=== PATIENT | female | born 1935 | race Caucasian/White ===

== ENCOUNTER → 2017-04-07 | Outpatient (CLI) | payer MEDICARE, OTHER ==
[~2017-04-07] MED LIST: ASPIRIN PO; BIOTIN PO; CALTRATE PO; CENTRUM PO; DOCUSATE SODIU100 MG PO; GLUCOSAMINE; GLUCOSAMINE500 M1 PO; HCTZ PO; HYDROCHLOROTHIAZIDE PO; HYDROCODON-ACE1 EAC7 PO; LISINOPRIL PO; LOTRONEX1 MG PO; MELATONIN PO; NORVASC PO; OYSTER CALCIUM500 MG PO; PLAVIX PO; PREMARIN PO; PROTONIX PO; REGLAN PO; SYNTHROID PO; SYNTHROID0.1 MG PO; THYROID PO; TUSSIONEX
[2017-04-07 13:25] LABS: URINE APPEARANCE HAZY; URINE BILIRUBIN NEG (NEG); URINE BLOOD TRACE-INTACT (NEG); URINE COLOR YELLOW; URINE GLUCOSE NEG (NORM); URINE KETONE NEG (NEG); URINE LEUKOCYTE ESTERASE 3+ (NEG); URINE NITRATE NEG (NEG); URINE PH 6.5 (5-8); URINE PROTEIN NEG (NEG); URINE UROBILINOGEN 0.2 MG/DL (NORM)
[2017-04-07 13:26] LABS: MICRO INDICATED? YES
[2017-04-07 13:31] LABS: URINE BACTERIA 1+ (NEG); URINE SQUAMOUS EPITHELIAL CELL MANY /[HPF]; URINE WBC 25-50 /[HPF] (0-5)
[2017-04-09 11:09] LABS: SJOGREN'S SSA AB >8.0 AI (<1.0); SJOGREN'S SSB AB >8.0 AI (<1.0)
[2017-04-11 12:26] LABS: ANA SCREEN Positive (Negative); ANA TITER COMMENT Has been added (()); NUCLEAR PATTERN (ANA) Speckled (())
== END | disposition home or self-care (01) ==
LOC: SLAB 12:44
PROVIDERS: Dermatology
DX: L93.1 Subacute cutaneous lupus erythematosus (principal); Z79.899 Other long term (current) drug therapy
CPT/HCPCS: 36415; 81003; 86038; 86039; 86225; 86235